=== PATIENT | male | born 1950 | race Caucasian/White ===

== ENCOUNTER → 2018-02-22 07:01 | Outpatient (CLI) | payer OTHER, SELFPAY ==
[2018-02-22 10:03] LABS: Absolute Lymphocyte Count 1.97 X10^3/ul (0.83-4.51); Absolute Neutrophil Count 2.4 X10^3/uL (2.0-7.7); Basophil# 0.02 X10^3/uL; Basophil% 0.4 % (0-1); Eosinophil# 0.29 X10^3/uL; Eosinophils% 5.4 % (0-5); Hematocrit 44.5 % (40-54); Hemoglobin 14.6 g/dl (13.0-16.5); Lymphocyte # 1.97 X10^3/ul (4.0); Lymphocyte % 36.8 % (19-41); Mean Corp Hgb Conc 32.8 g/gl (32-36); Mean Corpuscular Hgb 29.6 pg (27.0-32.0); Mean Corpuscular Volume 90.3 fL (80-94); Mean Platelet Vol. 11.2 fl (6.2-12.0); Monocyte# 0.63 X10^3/uL; Monocyte% 11.8 % (0-10); Neutrophil # 2.43 X10^3/uL (2.7-7.7); Neutrophil % 45.4 % (47-70); Platelet Count 188 K/mm3 (150-450); RBC Distribution Width CV 13.2 % (11.6-14.6); RBC Distribution Width SD 43.2 fl (35.1-43.9); Red Blood Count 4.93 M/mm3 (4.6-6.2); White Blood Count 5.4 K/mm3 (4.4-11.0)
[2018-02-22 10:06] LABS: POSITIVE COUNT NO; POSITIVE DIFFERENTIAL NO; POSITIVE MORPHOLOGY NO
[2018-02-22 10:16] LABS: ALB/GLOB Ratio 0.9 RATIO (0.9-2.4); AST(SGOT) 30 U/L (15-37); Alanine Aminotransfer ALT/SGPT 33 U/L (16-61); Albumin, Serum 3.5 g/dL (3.2-5.0); Alkaline Phosphatase 65 U/L (45-117); Anion Gap 7 (5-15); BUN 15 mg/dL (7-18); BUN/Creat Ratio 15.1 RATIO (10-20); Calcium,Total 8.1 mg/dL (8.5-10.1); Chloride 110 mmol/L (98-107); Cholesterol 172 mg/dL (200); Creatinine, Serum 0.99 mg/dL (0.70-1.30); EST Glomerular Filtration Rate 80 mL/min (>60); Est Glom Filt Rate - Afr Amer 97 mL/min (>60); Globulin 3.7 g/dL (2.2-4.2); Glucose 100 mg/dL (74-106); High Density Lipoprotein 50 mg/dL; PSA,Total - Annual Screen 1.22 ng/mL (0.00-4.00); Potassium 3.4 mmol/L (3.5-5.1); Protein, Total 7.2 g/dL (6.4-8.2); Sodium Level 145 mmol/L (136-145); Triglycerides 126 mg/dL; Very Low Density Lipoprotein 25 mg/dL (5-40)
[2018-02-22 10:23] LABS: Color, Urine Yellow (Yellow); Glucose, Dipstick Normal (Normal); Ketone-Dipstick Negative (Negative); Leukocyte Esterase-Dipstick Negative /ul (Negative); Nitrite-Dipstick Negative (Negative); Occult Blood-Urine Negative /ul (Negative); Protein-Dipstick Negative (Negative); Specific Gravity, Urine 1.025 (1.002-1.030); Urine Bilirubin Dipstick Negative (Negative); Urine Clarity Sl. Cloudy (Clear); Urine Urobilinogen Normal (Normal)
== END ==
PROVIDERS: Family Provider Family Medicine; PCP Family Medicine; Visit Provider Family Medicine
DX: Z00.00 Encounter for general adult medical examination without abnormal findings (principal); Z12.5 Encounter for screening for malignant neoplasm of prostate
CPT/HCPCS: 36415; 80053; 80061; 81002; 84153; 85025; G0103

== ENCOUNTER → 2023-02-16 | Outpatient (CLI) | payer OTHER, SELFPAY ==
[2023-02-16 12:09] LABS: Absolute Lymphocyte Count 1.81 X10^3/uL (0.83-4.51); Absolute Neutrophil Count 6.2 X10^3/uL (2.0-7.7); Basophil# 0.05 X10^3/uL; Basophil% 0.5 % (0-1); Eosinophil# 0.27 X10^3/uL; Eosinophils% 2.8 % (0-5); Hematocrit 45.2 % (40-54); Hemoglobin 15.1 g/dL (13.0-16.5); Lymphocyte # 1.81 X10^3/ul (0.83-4.51); Mean Corp Hgb Conc 33.4 g/dL (32-36); Mean Corpuscular Hgb 30.4 pg (27.0-32.0); Mean Corpuscular Volume 91.1 fL (80-94); Mean Platelet Vol. 10.9 fl (6.2-12.0); Monocyte# 1.17 X10^3/uL; Monocyte% 12.3 % (0-10); NRBC Flagged by Analyzer 0 % (0-5); Neutrophil % 65.2 % (47-70); Platelet Count 188 K/mm3 (150-450); RBC Distribution Width CV 13.3 % (11.6-14.6); RBC Distribution Width SD 44.7 fl (35.1-43.9); Red Blood Count 4.96 M/mm3 (4.6-6.2); White Blood Count 9.5 K/mm3 (4.4-11.0)
[2023-02-16 12:42] LABS: ALB/GLOB Ratio 0.8 RATIO (0.9-2.4); AST(SGOT) 14 U/L (15-37); Alanine Aminotransfer ALT/SGPT 22 U/L (16-61); Albumin, Serum 3.3 g/dL (3.2-5.0); Alkaline Phosphatase 75 U/L (45-117); Anion Gap 2 (5-15); BUN 14 mg/dL (7-18); BUN/Creat Ratio 14.5 RATIO (10-20); Calcium,Total 8.6 mg/dL (8.5-10.1); Chloride 111 mmol/L (98-107); Cholesterol 168 mg/dL (200); Creatinine, Serum 0.97 mg/dL (0.70-1.30); EST Glomerular Filtration Rate 81 mL/min (>60); Est Glom Filt Rate - Afr Amer 98 mL/min (>60); Glucose 102 mg/dL (74-106); High Density Lipoprotein 46 mg/dL; Potassium 4.1 mmol/L (3.5-5.1); Protein, Total 7.3 g/dL (6.4-8.2); Sodium Level 143 mmol/L (136-145); Triglycerides 116 mg/dL; Very Low Density Lipoprotein 23 mg/dL (5-40)
== END | disposition home or self-care (01) ==
LOC: BIMLAB 09:15
PROVIDERS: PCP Internal Medicine; Referring Provider Internal Medicine; Visit Provider Internal Medicine
DX: Z00.00 Encounter for general adult medical examination without abnormal findings (principal); Z13.6 Encounter for screening for cardiovascular disorders
CPT/HCPCS: 36415; 80053; 80061; 85025

== ENCOUNTER 2023-04-02 12:57 | Emergency (ER) | payer OTHER, SELFPAY ==
[2023-04-02 12:59] VITALS: BP 143/75; PULSE 70; RESP 14; TEMP 37.2; O2SAT 99
--- NOTE | 2023-04-02 14:38 | EKG12_ITS ---
Test Reason : DIZZY Blood Pressure : / mmHG Vent. Rate : 074 BPM Atrial Rate : 074 BPM P-R Int : 216 ms QRS Dur : 106 ms QT Int : 400 ms P-R-T Axes : 051 -35 030 degrees QTc Int : 444 ms Sinus rhythm with 1st degree A-V block Left axis deviation Incomplete right bundle branch block Abnormal ECG Confirmed by ARAVIND HAWLEY, FRANCISCO ([id number]), food editor PHIL MOORE ([id number]) on 04/07/2023 11:31:53 AM Referred By: Confirmed By:PAOLA NAZARIO MD
--- NOTE | 2023-04-02 14:38 | CT_ITS ---
STUDY: CT BRAIN WITHOUT CONTRAST REASON FOR EXAM: Male, 72 years old. Headache and dizziness. RADIATION DOSAGE (If Supplied By Facility): CTDIvol = ( 44.99 ) mGy, DLP = ( 779.24 ) mGycm TECHNIQUE: Transaxial CT imaging of the brain was performed without administration of intravenous contrast material. Individualized dose optimization techniques were used for this CT. COMPARISON: No relevant priors. FINDINGS: Normal soft tissue structures. Normal calvarium. There is mild cerebral atrophy with widening of the extra-axial spaces and ventricular dilatation. Normal white matter tracts of the cerebral hemispheres. Normal basal ganglia and thalami. Normal brainstem. Normal cerebellum. There is no intracranial hemorrhage. There are no findings of an acute ischemic infarction. Retention cyst or polyp in the inferior aspect of the left maxillary sinus. CT/Brain/Head without Contrast IMPRESSION: Chronic involutional changes of the brain. Electronically Signed: Allen Flores MD at 15:22 EDT ,
--- NOTE | 2023-04-02 15:10 | RAD_ITS ---
STUDY: X-RAY CHEST REASON FOR EXAM: Male, 72 years old. Cough TECHNIQUE: Single AP portable view of the chest. COMPARISON: None. FINDINGS: Mild elevation of the right hemidiaphragm. There is no demonstrated pleural abnormality. Normal size heart. Normal mediastinum and jj. Normal visualized pulmonary arteries. There is atherosclerotic tortuosity of the aortic arch and descending thoracic aorta. There are diffuse degenerative changes of the visualized thoracic spine. Normal visualized ribs, clavicles, and shoulders. There is no demonstrated abnormality of the visualized soft tissue structures of the upper abdomen. RAD/Chest 1 View (Portable) IMPRESSION: The lungs are clear. Electronically Signed: Allen Flores MD at 15:41 EDT ,
--- NOTE | 2023-04-02 15:11 | EDS_ITS ---
HPI History of Present Illness Chief Complaint: Dizziness Informant: patient Onset/Context/Timing Onset: Today Context: Sudden Onset Timing: Continuous Quality: Spinning Location: Head Worsened by: Standing, movement Relieved by: Rest Narrative Narrative: Patient presents with dizziness that began today. Patient states he felt dizzy when he woke up today. Patient describes it as a spinning sensation. Patient states it is worse with standing and with movement. Patient states he has had some nausea and vomiting with this. Patient also admits to some tinnitus but states that it is chronic for him. Patient states he did have an episode of blurry vision. Patient admits to some pain in the back of his neck when he went to bed last night. Patient admits to a mild headache today. Patient denies any hearing changes. Patient denies any fevers or chills. [facility] Medical History GERD (gastroesophageal reflux disease) Lateral meniscus tear Home Medications meclizine 25 mg tablet 25 mg PO 4X/DAY PRN PRN Dizziness #20 tabs 04/02/23 [Rx Last Taken Unknown] Allergy/AdvReac Type Severity Reaction Status Date / Time acetaminophen [From Vicodin] Allergy Intermediate VOMITS Verified 04/02/23 12:59 amoxicillin [Amoxicillin] Allergy Intermediate Hives Verified 04/02/23 12:59 hydrocodone bitartrate Allergy Intermediate VOMITS Verified 04/02/23 12:59 [From Vicodin] Penicillins Allergy Intermediate Hives Verified 04/02/23 12:59 Family History (Updated 02/16/23 @ 08:[address] Nadya Sherman MD) Father Alcohol abuse Sister Arthritis Mother FHx: throat cancer Surgical History H/O wrist surgery Hip joint replacement status History of ankle surgery Social History household members: spouse current occupational status: employed current occupation: drives school bus Smoking Status: Former smoker quit date: 07/13/92 pack-years: 40 Electronic Cigarette Use: not used alcohol intake: current alcohol intake frequency: holidays/special occasions only substance use type: does not use do you feel safe at home: Yes ROS ROS ED Constitutional Constitutional ED: Denies chills or fever(s) Eyes Eyes: Reports blurry vision; Denies diplopia ENT ENT ED: Denies rhinorrhea or sore throat Cardiovascular Cardiovascular: Denies chest pain or palpitations Respiratory/Chest Respiratory/Chest: Denies cough or dyspnea Gastrointestinal Gastrointestinal: Reports nausea and vomiting Genitourinary Genitourinary ED: Denies dysuria or hematuria Musculoskeletal Musculoskeletal: Reports neck pain; Denies back pain Integumentary Denies abscess or rash Neurologic Neurologic: Reports headache(s); Denies weakness Allergic/Immunologic Allergic/Immunologic ED: Denies mouth swelling or urticaria EXAM Physical Exam Const Vital Signs: 04/02/23 12:59 04/02/23 13:55 04/02/23 15:18 Temperature 99 F Temperature Source Temporal Pulse Rate 70 78 Pulse Rate [Lying] Pulse Rate [Sitting (for 1 minute prior to obtaining)] Pulse Rate [Standing (for 1 minute prior to obtaining)] Respiratory Rate 14 18 Respiratory Effort Normal Blood Pressure 143/75 H 161/87 H Blood Pressure [Lying] Blood Pressure [Sitting (for 1 minute prior to obtaining)] Blood Pressure [Standing (for 1 minute prior to obtaining)] Blood Pressure Mean 97 111 Blood Pressure Mean [Lying] Blood Pressure Mean [Sitting (for 1 minute prior to obtaining)] Blood Pressure Mean [Standing (for 1 minute prior to obtaining)] Pulse Ox 99 97 Oxygen Delivery Method Room Air 04/02/23 15:55 04/02/23 19:14 Temperature Temperature Source Pulse Rate 75 Pulse Rate [Lying] 83 Pulse Rate [Sitting (for 1 minute prior to obtaining)] 82 Pulse Rate [Standing (for 1 minute prior to obtaining)] 96 Respiratory Rate 15 Respiratory Effort Blood Pressure 134/79 H Blood Pressure [Lying] 143/75 H Blood Pressure [Sitting (for 1 minute prior to obtaining)] 162/85 H Blood Pressure [Standing (for 1 minute prior to obtaining)] 176/88 H Blood Pressure Mean 97 Blood Pressure Mean [Lying] 97 Blood Pressure Mean [Sitting (for 1 minute prior to obtaining)] 110 Blood Pressure Mean [Standing (for 1 minute prior to obtaining)] 117 Pulse Ox 95 Oxygen Delivery Method Room Air Positive well nourished and well developed General Appearance ED: well developed and NAD HEENT Reports TM's clear and moist mucous membranes Tympanic Membrane ED: Yes TM's clear Eyes PERRL and EOMs intact bilaterally Eyes Narrative: There is mild nystagmus with left lateral gaze Neck supple and no JVD Resp normal respiratory effort and clear to auscultation bilaterally Cardio regular rate and regular rhythm GI normal to inspection, nondistended, normoactive bowel sounds and non-tender Palpation: soft Extremity normal to inspection General Extremety ED: Negative for edema or tenderness General Extremity: Negative for edema Neuro oriented x3, CN's II-XII intact bilaterally and no sensory deficits noted Sensorium / Orientation: alert Motor Exam: strength 5/5 throughout Psych mental status grossly normal Skin no rashes or lesions noted MDM MDM MDM Narrative Medical decision making narrative: Differential diagnosis includes cardiac dysrhythmia, cardiac ischemia, stroke, electrolyte abnormality, hypoglycemia, hyperglycemia, vertigo, and labyrinthitis. CT scan of the brain will be obtained to assess for stroke. EKG will be obtained to assess for cardiac dysrhythmia and cardiac ischemia. Chest x-ray will be obtained to assess for pneumonia and cardiomegaly. CBC will be obtained to assess for leukocytosis and anemia. Basic metabolic profile will be obtained to assess for electrolyte abnormality, renal function, and glucose. PT with INR and PTT will be obtained to assess for coagulopathy. High-sensitivity troponin will be obtained to assess for cardiac ischemia. 88 COVID-19 rapid antigen will be obtained to assess for COVID-19 infection. Influenza A and influenza B antigens will be obtained to assess for influenza infection. Lab Data Attestation: I reviewed the patient's lab results. Lab results narrative: CBC was reviewed. There is a slight leukocytosis of 14.3. The remainder is within normal limits. Basic metabolic profile was reviewed and was within normal limits. High-sensitivity troponin was reviewed and was normal at 37. PT with INR and PTT were reviewed and were normal. COVID-19 rapid antigen was reviewed and was negative. Influenza A and influenza B antigens were reviewed and were negative. Labs: Laboratory Results - last 24 hr 04/02/23 15:30 WBC 14.3 H RBC 5.17 Hgb 15.2 Hct 45.7 MCV 88.4 MCH 29.4 MCHC 33.3 RDW Std Deviation 41.2 RDW Coeff of Jim 12.7 Plt Count 192 MPV 10.1 Immature Gran % (Auto) 0.400 Neut % (Auto) 88.6 H Lymph % (Auto) 7.6 L [place] % (Auto) 3.2 Eos % (Auto) 0.0 Baso % (Auto) 0.2 Absolute Neuts (auto) 12.6 H Absolute Lymphs (auto) 1.09 Nucleated RBC % 0 PT 13.5 INR 1.0 APTT 25.6 Sodium 138 Potassium 3.8 Chloride 107 Carbon Dioxide 27.0 Anion Gap 4 L BUN 14 Creatinine 0.91 Estim Creat Clear Calc 74.46 Est GFR (MDRD) Af Amer 105 Est GFR (MDRD) Non-Af 87 BUN/Creatinine Ratio 15.4 Glucose 118 H Calcium 8.9 Troponin I High Sens 37 Radiography Diagnostic Testing: Clinical Impression(s) from Imaging Studies Brain CT 04/02/23 14:38 IMPRESSION: Chronic involutional changes of the brain. Electronically Signed: Allen Flores MD at 15:22 EDT , Chest X-Ray 04/02/23 15:10 IMPRESSION: The lungs are clear. Electronically Signed: Allen Flores MD at 15:41 EDT , CT scan of the brain was obtained. There is no acute intracranial abnormality. This was interpreted by the radiologist and was also independently reviewed by myself. Portable 1 view chest x-ray was obtained. On my independent interpretation, lung fox are clear. There is normal cardiac silhouette. Bony thorax is normal. There is no acute process noted. Radiologist also interpreted the x- ray and agrees. EKG Initial EKG: Attestation: I personally reviewed and interpreted this EKG as follows: Interpretation: Sinus Rhythm (With a first degree AV block with a rate of 74), No Acute Injury Pattern and RBBB (Incomplete) Comments: KG was obtained. On my independent interpretation, it shows sinus rhythm with a first-degree AV block with a rate of 74. NE interval was prolonged at 260 ms. QRS interval was 106 ms. QTc interval was 444 ms. There is left axis deviation at -35. There is an incomplete right bundle branch block pattern noted. There are no acute ST or T wave changes noted. Prior EKG tracings: not available for review Prior: No Prior Treatment and Re-Evaluation :: Patient was given a dose of Valium here. Patient was still dizzy on reevaluation. Patient was given a dose of meclizine. Patient was able to ambulate after this. Was given a prescription for meclizine. Patient was instructed to drink plenty of fluids. Patient was instructed to follow-up with his primary care physician in 5 to 7 days. Patient understood and was agreeable with the plan. All questions were answered. Discharge Plan Triage Chief Complaint: Dizziness ED Provider: Huan Bradshaw Dx/Rx/DC Orders Clinical Impression: Vertigo Instructions: ED Vertigo, Unspecified Prescriptions: New meclizine [meclizine] 25 mg tablet 25 mg PO 4X/DAY PRN PRN (Reason: Dizziness) Qty: 20 0RF Primary Care Provider: Nadya Sherman Referrals: Nadya Sherman MD [Primary Care Provider] - 5-7 Days Disposition Disposition: Home, Self Care
[2023-04-02 15:18] VITALS: BP 161/87; PULSE 78; RESP 18; O2SAT 97; BMI 32.1
[2023-04-02] MEDS: diazePAM 5 MG Tablet 2.5 MG PO (15:27)
[2023-04-02 15:46] LABS: Absolute Lymphocyte Count 1.09 X10^3/uL (0.83-4.51); Absolute Neutrophil Count 12.6 X10^3/uL (2.0-7.7); Basophil# 0.03 X10^3/uL; Basophil% 0.2 % (0-1); Hematocrit 45.7 % (40-54); Hemoglobin 15.2 g/dL (13.0-16.5); Lymphocyte # 1.09 X10^3/ul (0.83-4.51); Lymphocyte % 7.6 % (19-41); Mean Corp Hgb Conc 33.3 g/dL (32-36); Mean Corpuscular Hgb 29.4 pg (27.0-32.0); Mean Corpuscular Volume 88.4 fL (80-94); Mean Platelet Vol. 10.1 fl (6.2-12.0); Monocyte# 0.46 X10^3/uL; Monocyte% 3.2 % (0-10); NRBC Flagged by Analyzer 0 % (0-5); Neutrophil # 12.64 X10^3/uL (2.7-7.7); Neutrophil % 88.6 % (47-70); Platelet Count 192 K/mm3 (150-450); RBC Distribution Width CV 12.7 % (11.6-14.6); RBC Distribution Width SD 41.2 fl (35.1-43.9); Red Blood Count 5.17 M/mm3 (4.6-6.2); White Blood Count 14.3 K/mm3 (4.4-11.0)
[2023-04-02 15:55] VITALS: BP 143/75; BP 162/85; BP 176/88; PULSE 82; PULSE 83; PULSE 96
[2023-04-02 16:01] LABS: Anion Gap 4 (5-15); BUN 14 mg/dL (7-18); BUN/Creat Ratio 15.4 RATIO (10-20); Calcium,Total 8.9 mg/dL (8.5-10.1); Chloride 107 mmol/L (98-107); Creatinine, Serum 0.91 mg/dL (0.70-1.30); EST Glomerular Filtration Rate 87 mL/min (>60); Est Glom Filt Rate - Afr Amer 105 mL/min (>60); Estimated Creatinine Clearance 74.46 ml/min; Glucose 118 mg/dL (74-106); Potassium 3.8 mmol/L (3.5-5.1); Sodium Level 138 mmol/L (136-145); Troponin-I HS 37 pg/mL (3.0-78.0)
[2023-04-02 16:08] LABS: Prothrombin Time (Protime)PT. 13.5 SECONDS (11.7-14.9)
[2023-04-02 16:09] LABS: Partial Thromboplast Time 25.6 Seconds (24.1-36.2)
--- NOTE | 2023-04-02 17:30 | ED.RN ---
up to br. dizziness waxing and waning with sitting to standing and patrick versa. pt sat up in chair after returning to br. after several minutes became dizzy and felt needed to sit down
[2023-04-02] MEDS: Meclizine HCl 25 MG Tablet PO (18:23)
[2023-04-02 19:14] VITALS: BP 134/79; PULSE 75; RESP 15; O2SAT 95; BMI 32.1
[2023-04-02 20:12] VITALS: BP 134/79; PULSE 74; RESP 16; O2SAT 98
== END 2023-04-02 20:13 | disposition home or self-care (01) ==
PROVIDERS: Emergency Provider Emergency Medicine; PCP Internal Medicine; Visit Provider Emergency Medicine
DX: R42 Dizziness and giddiness (principal); Z87.891 Personal history of nicotine dependence
CPT/HCPCS: 70450; 71045; 80048; 84484; 85025; 85610; 85730; 87428; 93005; 99284; J7030; A4216

== ENCOUNTER → 2023-04-06 | Outpatient (CLI) | payer OTHER, SELFPAY ==
[2023-04-06 15:24] LABS: Absolute Lymphocyte Count 2.14 X10^3/uL (0.83-4.51); Absolute Neutrophil Count 3.9 X10^3/uL (2.0-7.7); Basophil# 0.05 X10^3/uL; Basophil% 0.7 % (0-1); Eosinophil# 0.18 X10^3/uL; Eosinophils% 2.6 % (0-5); Hematocrit 44.5 % (40-54); Hemoglobin 14.5 g/dL (13.0-16.5); Lymphocyte # 2.14 X10^3/ul (0.83-4.51); Lymphocyte % 30.7 % (19-41); Mean Corp Hgb Conc 32.6 g/dL (32-36); Mean Corpuscular Hgb 30.1 pg (27.0-32.0); Mean Corpuscular Volume 92.3 fL (80-94); Mean Platelet Vol. 10.8 fl (6.2-12.0); Monocyte# 0.71 X10^3/uL; Monocyte% 10.2 % (0-10); NRBC Flagged by Analyzer 0 % (0-5); Neutrophil # 3.89 X10^3/uL (2.7-7.7); Neutrophil % 55.7 % (47-70); Platelet Count 188 K/mm3 (150-450); RBC Distribution Width CV 13.2 % (11.6-14.6); RBC Distribution Width SD 44.7 fl (35.1-43.9); Red Blood Count 4.82 M/mm3 (4.6-6.2)
== END | disposition home or self-care (01) ==
LOC: BIMLAB 13:32
PROVIDERS: PCP Internal Medicine; Visit Provider Internal Medicine
DX: R42 Dizziness and giddiness (principal)
CPT/HCPCS: 85025

== ENCOUNTER 2023-04-07 12:10 | Outpatient (RCR) | payer OTHER, SELFPAY ==
--- NOTE | 2023-04-07 12:54 | HP.PTEVAL_ITS ---
Patient's Visit Information Visit Information Visit Information: TERESA SAVAGE is a 72 year old M referred to Physical Therapy by Dr. Nadya Sherman MD with a diagnosis of vertigo. Date of Evaluation: 04/07/23 Physical Therapist: Huan Mirza, DPT, OCS, CSCS Visit Plan Frequency: 1x/Week Duration: 2-4 Weeks Plan: weekly as needed for positional checks, one visit in 2 weeks to build consistency with abolished dizzyness, call rpior if needed, d/c if it does not return. All testing of vestibular negative today. Subjective Subjective: Had pain in neck last week but woke up am after getting up for a second or two. 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 Got nauseated after noon route. Went to ER for 9 hours and diagnosed after catscan and EKG with vertigo. Given meclizine. Had good days Thursday but a little bit thursday and took pill and then has been good since. feels normal in between episodes. Sleep is Ok. 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 Hobbies include race cars. Activities normal at this point when not dizzy, Objective Objective: Motion S Q: no problem with any movments cervical AROM WNL and without pain. UE AROM WFL and without pain or problems, strength 4/5. Good balance, romberg 30 eo adn ec - B hallpike lissett, - roll test oculomotor: - ocular tilt - skew eye deviation - head thrust DVA 3 lines different than SVA with glasses no nystagmus today with gaze or head shake Normal pursuit and saccades and VOR H and V without symptoms or problematic eye movements and good quality movement. Balance/Special Test Scores Functional Gait Assessment Score: 30 % Disability: 0 Dizziness Score: 4 Goals Goal 1:: #ensure dizzyness abolished for >1 week Goal Time Frame: 2-4 Weeks Rehabilitation Potential Physical Therapy Diagnosis: Likely resolved BPPV, no current symptoms for two d ays. Rehabilitation Potential: Good Anticipated Interventions Patient/Client Instruction: Educate patient on: Condition and Plan of Care For the Purpose of:: To increase tolerance to activity/condition/position Comment: posoitional as needed. For the Purpose of:: To increase tolerance to activity/condition/position Text: Thank you for the opportunity to evaluate your patient. For Medicare and Medicare HMO plans, please review the plan of care and approve it. It will need to be FAXED BACK to us at [phone] for Medicare purposes. For Medicare only, by signing this I certify the plan of care. Please let me know if there are questions or concerns regarding this plan of care. Physician Signature: Date:
--- NOTE | 2023-05-26 10:30 | HP.PT.NRP ---
Patient Information Patient Information: TERESA SAVAGE was seen in my office for initial evaluation on 04/07/23. The following Plan of Care was established for this patient: POC Established Initial Frequency: 1x/Week Initial Duration: 2-4 Weeks Anticipated Interventions Patient/Client Instruction: Educate patient on: Condition and Plan of Care For the Purpose of:: To increase tolerance to activity/condition/position For the Purpose of:: To increase tolerance to activity/condition/position Last Seen Last Seen: This patient was last seen in our office 04/07/23. Pertinent comments regarding their Physical therapy will appear below: Pt seen one visit evaluation and POC established. Pt did not return for any future visits. At this point, it has been over 6 weeks and I will discontinue due to nonattendance. At this point I will be discontinuing this patient from physical therapy. I would be happy to see this patient again in the future if found appropriate by the physician. Thank you! Huan Mirza, DPT, OCS, CSCS Balance/Gait/Functional tests Balance/Special Test Scores Functional Gait Assessment Score: 30 % Disability: 0 Dizziness Score: 4
== END 2023-04-07 19:00 | disposition home or self-care (01) ==
LOC: PT 12:10
PROVIDERS: PCP Internal Medicine; Referring Provider Internal Medicine; Visit Provider Internal Medicine
DX: R42 Dizziness and giddiness (principal)
CPT/HCPCS: 97161

== ENCOUNTER 2023-10-17 09:17 | Emergency (ER) | payer OTHER, SELFPAY ==
[2023-10-17 09:18] VITALS: BP 162/91; BP 167/102; PULSE 92; PULSE 95; RESP 14; RESP 18; TEMP 36.3; O2SAT 94; O2SAT 95; BMI 31.1
--- NOTE | 2023-10-17 09:31 | EDS_ITS ---
HPI History of Present Illness Chief Complaint: Allergic Reaction Informant: patient Onset/Context/Timing Onset: Yesterday Context: Gradual Onset Timing: Intermittent Quality: Swelling Location: Upper and lower lips Worsened by: Nothing Relieved by: Benadryl Narrative Narrative: Patient presents with possible allergic reaction that began yesterday. Patient states he was prescribed clindamycin for dental infection. Patient states he was given a dose by his dentist prior to his dental treatment. Patient states that during the treatment his upper lip started to swell. Patient states this improved with Benadryl. Patient states that today he took another dose of clindamycin and his lower lip started to swell. Patient denies any difficulty breathing or difficulty swallowing. Patient also noted 1 reddened area to the left scapular area. Patient denies any other rashes or urticaria. [facility] Medical History GERD (gastroesophageal reflux disease) Lateral meniscus tear Home Medications meclizine 25 mg tablet 25 mg PO 4X/DAY PRN PRN Dizziness #20 tabs 04/06/23 [Rx Last Taken Unknown] azithromycin 250 mg tablet See Rx Instructions PO .COMPLEX #6 tabs 10/17/23 [Rx Last Taken Unknown] prednisone 20 mg tablet 60 mg (3 x 20 mg) PO DAILY #15 TABLETS 10/17/23 [Rx Last Taken Unknown] Allergy/AdvReac Type Severity Reaction Status Date / Time acetaminophen [From Vicodin] Allergy Intermediate VOMITS Verified 10/17/23 09:20 amoxicillin [Amoxicillin] Allergy Intermediate Hives Verified 10/17/23 09:20 hydrocodone bitartrate Allergy Intermediate VOMITS Verified 10/17/23 09:20 [From Vicodin] Penicillins Allergy Intermediate Hives Verified 10/17/23 09:20 clindamycin Allergy Angioedema Verified 10/17/23 09:20 Family History (Updated 02/16/23 @ 08:[address] Nadya Sherman MD) Father Alcohol abuse Sister Arthritis Mother FHx: throat cancer Surgical History H/O wrist surgery Hip joint replacement status History of ankle surgery Social History household members: spouse current occupational status: employed current occupation: drives school bus Smoking Status: Former smoker quit date: 07/13/92 pack-years: 40 Electronic Cigarette Use: not used alcohol intake: current alcohol intake frequency: holidays/special occasions only substance use type: does not use do you feel safe at home: Yes ROS ROS ED Constitutional Constitutional ED: Denies chills or fever(s) Eyes Eyes: Denies blurry vision or change in vision ENT ENT ED: Denies rhinorrhea or sore throat Cardiovascular Cardiovascular: Denies chest pain or palpitations Respiratory/Chest Respiratory/Chest: Denies cough or dyspnea Gastrointestinal Gastrointestinal: Denies nausea or vomiting Genitourinary Genitourinary ED: Denies dysuria or hematuria Musculoskeletal Musculoskeletal: Denies back pain or neck pain Integumentary Reports rash; Denies abscess Neurologic Neurologic: Denies headache(s) or weakness Allergic/Immunologic Allergic/Immunologic ED: Denies mouth swelling or urticaria EXAM Physical Exam Const Vital Signs: 10/17/23 09:18 10/17/23 09:18 Temperature 97.3 F L Temperature Source Temporal Pulse Rate 92 95 Respiratory Rate 18 14 Blood Pressure 167/102 H 162/91 H Blood Pressure Mean 123 114 Pulse Ox 95 94 Oxygen Delivery Method Room Air Room Air Positive well nourished and well developed General Appearance ED: well developed and NAD HEENT Reports moist mucous membranes HEENT Narrative: There is some mild edema of the lower lip. Oral mucosa is pink and moist. Oropharynx is clear. Airway is patent. Neck supple and no JVD Chest Wall palpation of chest normal Resp normal respiratory effort and clear to auscultation bilaterally Cardio regular rate and regular rhythm GI non-tender and non-distended Palpation: soft Extremity normal to inspection General Extremety ED: Negative for edema or tenderness General Extremity: Negative for edema Neuro oriented x3, CN's II-XII intact bilaterally and no sensory deficits noted Sensorium / Orientation: alert Motor Exam: strength 5/5 throughout Psych mental status grossly normal Skin Skin Narrative: There is a small reddened area over the posterior aspect of the left shoulder area. There are no vesicles or pustules noted. There are no petechia noted. There is no discharge or drainage. MDM MDM MDM Narrative Medical decision making narrative: Differential diagnosis includes allergic reaction, infection, and electrolyte abnormality. CBC will be obtained to assess for leukocytosis and anemia. Basic metabolic profile will be obtained to assess for electrolyte abnormality and renal function. Treatment and Re-Evaluation :: Patient is given a dose of prednisone here. Patient was instructed to stop taking the clindamycin. Patient was given a prescription for prednisone and Zithromax. Patient was instructed to follow-up with his dentist in 5 to 7 days. Patient was instructed to follow-up with his primary care physician in 5 to 7 days. Patient understood and was agreeable with the plan. All questions were answered. Discharge Plan Triage Chief Complaint: Allergic Reaction ED Provider: Huan Bradshaw Dx/Rx/DC Orders Clinical Impression: Angioedema, Allergic reaction Instructions: ED General Allergic Reactions, ED Angioedema Prescriptions: New prednisone 20 mg tablet 60 mg PO DAILY Qty: 15 0RF azithromycin 250 mg tablet See Rx Instructions .ROUTE .COMPLEX Qty: 6 0RF Rx Instructions: For 250 mg dose pack: take 500 mg today (day 1), then 250 mg for 4 days (days 2-5) No Action meclizine 25 mg tablet 25 mg PO 4X/DAY PRN PRN (Reason: Dizziness) Qty: 20 0RF Primary Care Provider: Nadya Sherman Referrals: Nadya Sherman MD [Primary Care Provider] - 5-7 Days Dentist,Your [STAFF PHYSICIAN] - 5-7 Days Disposition Disposition: Home, Self Care
[2023-10-17] MEDS: predniSONE 20 MG Tablet 60 MG PO (09:49)
[2023-10-17 10:05] LABS: Absolute Lymphocyte Count 2.13 X10^3/uL (0.83-4.51); Absolute Neutrophil Count 3.1 X10^3/uL (2.0-7.7); Basophil# 0.03 X10^3/uL; Basophil% 0.5 % (0-1); Eosinophil# 0.13 X10^3/uL; Eosinophils% 2.1 % (0-5); Hematocrit 45.4 % (40-54); Hemoglobin 15.2 g/dL (13.0-16.5); Lymphocyte # 2.13 X10^3/ul (0.83-4.51); Lymphocyte % 34.6 % (19-41); Mean Corp Hgb Conc 33.5 g/dL (32-36); Mean Corpuscular Hgb 29.5 pg (27.0-32.0); Mean Corpuscular Volume 88.2 fL (80-94); Mean Platelet Vol. 10.1 fl (6.2-12.0); Monocyte# 0.75 X10^3/uL; Monocyte% 12.2 % (0-10); NRBC Flagged by Analyzer 0 % (0-5); Neutrophil # 3.11 X10^3/uL (2.7-7.7); Neutrophil % 50.6 % (47-70); Platelet Count 163 K/mm3 (150-450); RBC Distribution Width CV 12.7 % (11.6-14.6); RBC Distribution Width SD 41.3 fl (35.1-43.9); Red Blood Count 5.15 M/mm3 (4.6-6.2); White Blood Count 6.2 K/mm3 (4.4-11.0)
[2023-10-17 10:15] LABS: Anion Gap 5 (5-15); BUN 18 mg/dL (7-18); BUN/Creat Ratio 18.1 RATIO (10-20); Calcium,Total 8.6 mg/dL (8.5-10.1); Chloride 109 mmol/L (98-107); Creatinine, Serum 0.99 mg/dL (0.70-1.30); EST Glomerular Filtration Rate 79 mL/min (>60); Est Glom Filt Rate - Afr Amer 95 mL/min (>60); Estimated Creatinine Clearance 79.37 ml/min; Glucose 96 mg/dL (74-106); Potassium 3.6 mmol/L (3.5-5.1); Sodium Level 140 mmol/L (136-145)
[2023-10-17 10:54] VITALS: BP 173/104; PULSE 89; RESP 18; TEMP 36.6; O2SAT 99
--- NOTE | 2023-10-17 10:55 | ED.RN ---
DR CABELLO NOTIFIED ABOUT BP. ENCOURAGED PT TO KEEP RECORD AT HOME AND F/U WITH PCP
== END 2023-10-17 10:55 | disposition home or self-care (01) ==
PROVIDERS: Emergency Provider Emergency Medicine; PCP Internal Medicine; Visit Provider Emergency Medicine
DX: T78.40XA Allergy, unspecified, initial encounter (principal); Z87.891 Personal history of nicotine dependence; X58.XXXA Exposure to other specified factors, initial encounter
CPT/HCPCS: 80048; 85025; 99282; A4216